=== PATIENT | female | born 1985 | race Two or more races ===

== ENCOUNTER 2017-01-30 14:30 | Inpatient (IN) | payer SELFPAY ==
[~2017-01-30] VITALS: Ht 162.6 cm; Wt 89.4 kg
[2017-01-30] MEDS ORDERED: LIDOCAINE 1% PF 30 ML VIAL. INJ PRN (14:45)
[2017-01-30] MEDS ORDERED: BUTORPHANOL 2 MG/ML VIAL. IV PRN (14:45)
[2017-01-30] MEDS ORDERED: IBUPROFEN 600 MG TABLET. PO PRN (14:45)
[2017-01-30] MEDS ORDERED: 0.9 % SODIUM CHLORIDE 10 ML DISP.SYRIN. IV PRN (14:45)
[2017-01-30] MEDS ORDERED: TERBUTALINE 1 MG/ML VIAL. SQ PRN (14:45)
[2017-01-30] MEDS ORDERED: fentaNYL PF VIAL 100 MCG/2 ML VIAL IV PRN (14:45)
[2017-01-30] MEDS ORDERED: OXYTOCIN 30 UNIT/500 ML PREMIX 500 ML IV PRN ×2 (14:45)
[2017-01-30] MEDS ORDERED: AMPICILLIN SODIUM 2 GM in IV NORMAL SALINE 100ML 100 ML IV ONE (15:00)
[2017-01-30] MEDS ORDERED: DINOPROSTONE 10 MG SUPP.VAG VG ONE (16:00)
[2017-01-30] MEDS: IV RINGERS,LACTATED 1000ML 1,000 ML IV SCH (16:32)
[2017-01-30 16:45] LABS: HEMATOCRIT 34.7 % (36.0-47.0); HEMOGLOBIN 11.1 g/dL (12.0-15.5); RED BLOOD COUNT 4.88 x10^6/uL (3.50-5.40); RED CELL DISTRIBUTION WIDTH 16.2 % (11.5-14.5); WHITE BLOOD COUNT 8.5 x10^3/uL (4.0-11.0)
[2017-01-30 17:17] VITALS: BP 127/71
[2017-01-30] MEDS ORDERED: AMPICILLIN SODIUM 1 GM in IV NORMAL SALINE 50ML 50 ML IV SCH (19:00)
[2017-01-30] MEDS ORDERED: ACETAMINOPHEN 325 MG TABLET. PO PRN (20:30)
[2017-01-31] MEDS ORDERED: OXYTOCIN 30 UNIT/500 ML PREMIX 500 ML IV PRN ×2 (06:00→16:15)
[2017-01-31] MEDS ORDERED: OXYTOCIN in NORMAL SALINE PREMIX 30 UNIT/500 ML BAG. IV ONE (06:00)
[2017-01-31 06:18] LABS: RPR REFLEX Non Reactive (Non Reactive)
[2017-01-31] MEDS: IV RINGERS,LACTATED 1000ML 1,000 ML IV SCH ×2 (09:14→09:34)
[2017-01-31] MEDS ORDERED: IV RINGERS,LACTATED 1000ML 1,000 ML IV SCH (09:18)
[2017-01-31] MEDS ORDERED: fentaNYL PF VIAL 100 MCG/2 ML VIAL EPI PRN (09:30)
[2017-01-31] MEDS ORDERED: ROPIVacaine 0.2% IN 0.9%NACL PF 40 MG/20 ML DISP.SYRIN. EPI PRN (09:30)
[2017-01-31] MEDS ORDERED: NALOXONE 0.4 MG/ML VIAL. IV PRN (09:30)
[2017-01-31] MEDS ORDERED: BUPIVACAINE MPF 0.25% 10 ML VIAL. EPI PRN (09:30)
[2017-01-31] MEDS: L&D EPIDURAL CASSETTE 100 ML EP PRN ×2 (09:35→15:21)
--- NOTE | 2017-01-31 16:13 | PDOC ---
VAGINAL DELIVERY DATE DATE: 01/31/17 TIME: 16:11 : 5 Para: 4 EDC: Feb 04, 2017 VAGINAL DELIVERY: VTX VACCUM ASSISTED: No PLACENTA: Spontaneous SEX: Male WEIGHT Weight [ ] Nuchal Cord: Yes, Times 1, Loose Amniotic Fluid: Clear PAIN: Epidural EPISIOTOMY: No EXTENSION: No EBL 300cc COMPLICATIONS None CONDITION Stable Signs of Intrauterine Infectio: None Shoulder Dystocia: No DIAGNOSIS TIUP del Problems: MIKE LANDAVERDE MD Jan 31, 2017 16:13
[2017-01-31] MEDS ORDERED: MAGNESIUM HYDROXIDE 2,400 MG/30 ML ORAL.SUSP. PO PRN (16:15)
[2017-01-31] MEDS ORDERED: ZOLPIDEM 5 MG TABLET. PO PRN (16:15)
[2017-01-31] MEDS ORDERED: PHENYLEPH/MINERAL OIL/PETROLAT RECTAL OINTMENT 28GM TUBE. RC PRN (16:15)
[2017-01-31] MEDS ORDERED: HYDROCORTISONE 1% TOPICAL OINTMENT 30GM TUBE. TP PRN (16:15)
[2017-01-31] MEDS ORDERED: diphenhydrAMINE HCL 25 MG CAPSULE PO PRN (16:15)
[2017-01-31] MEDS ORDERED: MAG HYDROX/ALUMINUM HYD/SIMETH 30 ML ORAL.SUSP PO PRN (16:15)
[2017-01-31] MEDS ORDERED: ACETAMINOPHEN 325 MG TABLET. PO PRN (16:15)
[2017-01-31] MEDS ORDERED: BENZOCAINE 20% TOPICAL AEROSOL SPRAY 57GM CAN. TP PRN (16:15)
[2017-01-31] MEDS ORDERED: SIMETHICONE 80 MG TAB.CHEW PO PRN (16:15)
[2017-01-31] MEDS ORDERED: 0.9 % SODIUM CHLORIDE 10 ML DISP.SYRIN. IV PRN (16:15)
--- NOTE | 2017-01-31 16:16 | PDOC1 ---
OB - History Hx of Present Ultrasounds: Normal mid trimester US Obstetrical Complications: None Medical Complications: None Past Family/Social History * Past Medical, Surgical, Family and Obstetric Histories reviewed from chart. Blood Type: A+ Rubella: Immune RPR/VDRL: Negative GBS Status: Negative HBsAG: Negative OB - Chief Complaint & HPI Date of Admission: Date of Admission: Jan 30, 2017 at 14:30 Chief Complaint/History : 5 Para: 4 EDC: Feb 04, 2017 Reason for admission: induction of labor Indication for induction: other Admission Nurse Assessment Rev: Yes Problems: OB - Admission Exam Physical Exam Vitals: VS - Last 72 Hours, by Label Date Time Temp Pulse Resp B/P (MAP) Pulse Ox O2 Delivery O2 Flow Rate FiO2 01/31/17 15:21 17 01/31/17 09:35 18 01/30/17 17:17 98.3 93 20 127/71 (89) 98.3 HEENT: Normal, Nasal Mucosa Normal, Oropharynx Normal, Moist Membranes, Fontanelles Normal Heart: Regular Rate Lungs: Clear, Equal Abdomen: Gravid Extremities: Normal Pulses, No tenderness or swelling Reflexes: Normal Cervical Dilatation: 2cm Effacement: 50% Station: Ballotable Amniotic Fluid: Clear Heart Rate: Normal Accelerations: Accelerations Present Decelerations: No decelerations Short Term Variability: Present Contractions on Admission: >10 Minutes Apart Intensity: Moderate Assessment/Plan Assessment/Plan TIUP Induction ACSVD Problems: MIKE LANDAVERDE MD Jan 31, 2017 16:16
[2017-01-31] MEDS ORDERED: FERROUS SULFATE 325 MG TABLET. PO SCH (17:00)
[2017-01-31 21:03] VITALS: BP 109/69
[2017-01-31] MEDS: IBUPROFEN 800 MG TABLET. PO SCH (22:00)
[2017-01-31 23:05] VITALS: BP 106/62
[2017-02-01] MEDS: IBUPROFEN 800 MG TABLET. PO SCH ×2 (04:12→17:08)
[2017-02-01 06:06] VITALS: BP 98/64
[2017-02-01] MEDS: HYDROcodone/APAP 5/325MG 1 TAB TABLET PO PRN ×2 (08:59→22:31)
[2017-02-01 11:20] VITALS: BP 105/64
--- NOTE | 2017-02-01 17:23 | PDOC ---
OB Progress Note Date of Service 02/01/17 Time of Evaluation 1720 Notes Pt. feeling well. No complaints. Lab Laboratory Tests Test 02/01/17 04:48 Hematocrit 30.7 % (36.0-47.0) Laboratory Tests Test 02/01/17 04:48 Hematocrit 30.7 % (36.0-47.0) Medications Current Medications Sodium Chloride (Normal Saline Flush) 3 ml QSHIFT PRN IV AFTER MEDS AND BLOOD DRAWS; Start 01/30/17 at 14:45 Ringer's Solution 1,000 ml @ 125 mls/hr Q8H IV Last administered on 09:34; Start 01/30/17 at 14:33 Butorphanol Tartrate (Stadol) 2 mg PRN Q1HR PRN IV Severe labor pain; Start at 14:45 Fentanyl Citrate (Fentanyl 2ml Vial) 100 mcg PRN Q30MIN PRN IV Severe pain; Start 01/30/17 at 14:45 Terbutaline Sulfate (Brethine) 0.25 mg 1X PRN PRN SQ SEE COMMENTS; Start 01/30 at 14:45; Stop 01/31/17 at 14:44; Status DC Lidocaine HCl 30 ml 1X PRN PRN INJ SEE COMMENTS; Start 01/30/17 at 14:45; Stop 02/01/17 at 14:44; Status DC Ampicillin Sodium 2 gm/Sodium Chloride 100 ml @ 200 mls/hr 1X ONCE IV ; Start 01/30/17 at 15:00; Stop 01/30/17 at 16:52; Status DC Ampicillin Sodium 1 gm/Sodium Chloride 50 ml @ 100 mls/hr Q4H IV ; Start 01/30 at 19:00; Stop 01/30/17 at 19:00; Status DC Oxytocin/Sodium Chloride 500 ml @ 0 mls/hr CONT PRN IV SEE I/O RECORD; Start 01/30/17 at 14:45; Stop 01/30/17 at 16:52; Status DC Oxytocin/Sodium Chloride 500 ml @ 0 mls/hr CONT PRN PRN IV Post delivery bleeding; Start 01/30/17 at 14:45 Ibuprofen (Motrin) 600 mg PRN Q6HRS PRN PO PAIN Last administered on 19:34; Start 01/30/17 at 14:45 Dinoprostone (Cervidil) 10 mg 1X ONCE VG Last administered on 01/30/17 16:32 ; Start 01/30/17 at 16:00; Stop 01/30/17 at 16:01; Status DC Oxytocin/Sodium Chloride 500 ml @ 0 mls/hr CONT PRN IV SEE I/O RECORD; Start 01/31/17 at 06:00 Acetaminophen (Tylenol) 650 mg PRN Q6HRS PRN PO HEADACHE; Start 01/30/17 at 20 :30 Ringer's Solution 1,000 ml @ 1,000 mls/hr Q1H IV Last administered on 12:40; Start 01/31/17 at 09:18; Stop 01/31/17 at 10:17; Status DC Naloxone HCl (Narcan) 0.04 mg PRN Q1MIN PRN IV SEE COMMENTS; Start 01/31/17 at 09:30 Fentanyl Citrate (Fentanyl 2ml Vial) 100 mcg PRN 1X PRN EPI FOR ANESTHESIA; Start 01/31/17 at 09:30; Stop 02/01/17 at 09:29; Status DC Bupivacaine HCl (Sensorcaine-Mpf 0.25%) 10 ml PRN 1X PRN EPI FOR ANESTHESIA; Start 01/31/17 at 09:30; Stop 02/01/17 at 09:29; Status DC Ropivacaine/ Fentanyl/NS 100 ml @ 0 mls/hr CONT PRN EP PAIN Last administered on 01/31/17 15:21; Start 01/31/17 at 09:30 Ropivacaine/ Sodium Chloride 40 mg PRN 1X PRN EPI SEE COMMENTS Last administered on 01/31/17 09:33; Start 01/31/17 at 09:30; Stop 01/31/17 at 09 :35; Status DC Sodium Chloride (Normal Saline Flush) 10 ml QSHIFT PRN IV AFTER MEDS AND BLOOD DRAWS; Start 01/31/17 at 16:15 Oxytocin/Sodium Chloride 500 ml @ 62.5 mls/hr CONT PRN IV SEE I/O RECORD; Start 01/31/17 at 16:15; Stop 02/01/17 at 00:14; Status DC Acetaminophen (Tylenol) 650 mg PRN Q6HRS PRN PO MILD PAIN / TEMP; Start at 16:15 Ibuprofen (Motrin) 800 mg Q8HRS PO Last administered on 02/01/17 17:08; Start 01/31/17 at 22:00 Magnesium Hydroxide (Milk Of Magnesia) 2,400 mg PRN DAILY PRN PO CONSTIPATION Last administered on 02/01/17 17:08; Start 01/31/17 at 16:15 Al Hydroxide/Mg Hydroxide (Mylanta Plus Xs) 30 ml PRN Q4HRS PRN PO HEARTBURN / GAS; Start 01/31/17 at 16:15 Simethicone (Gas-X) 80 mg PRN AFTMEALHC PRN PO GAS / BLOATING; Start 01/31/17 at 16:15 Diphenhydramine HCl (Benadryl) 25 mg PRN Q6HRS PRN PO ITCHING; Start 01/31/17 at 16:15 Benzocaine (Americaine) 1 spray PRN QID PRN TP TOPICAL PAIN Last administered on 01/31/17 20:39; Start 01/31/17 at 16:15 Phenyleph/Shark Oil/Min Oil/Petrol (Preparation H) 1 lucretia PRN QID PRN RC RECTAL PAIN; Start 01/31/17 at 16:15 Hydrocortisone (Cortaid) 1 lucretia PRN QID PRN TP RECTAL PAIN; Start 01/31/17 at 16:15 Ferrous Sulfate (Feosol) 325 mg BIDWMEALS PO ; Start 01/31/17 at 17:00 Zolpidem Tartrate (Ambien) 5 mg PRN QHS PRN PO INSOMNIA, MAY REPEAT X1; Start 01/31/17 at 16:15 Info (Do NOT chart on this placeholder) 1 ea 1X PRN PRN MC SEE COMMENTS; Start 01/31/17 at 16:15 Acetaminophen/ Hydrocodone Bitart (Lortab 5/325) 1 tab PRN Q4HRS PRN PO PAIN Last administered on 02/01/17 08:59; Start 01/31/17 at 16:15 Oxytocin/Sodium Chloride (Oxytocin Premix Infusion) 30 unit STK-MED ONCE IV ; Start 01/31/17 at 06:00; Stop 02/01/17 at 12:59; Status DC Assessment A: PPD#1 s/p Plan of Care: Continue current Tx, Mgmt [place] MIRANDA Jr, MD Feb 01, 2017 17:23
[2017-02-01 23:01] VITALS: BP 112/68
[2017-02-02 06:03] VITALS: BP 119/78
[2017-02-02] MEDS: IBUPROFEN 800 MG TABLET. PO SCH (08:25)
[2017-02-02 09:30] VITALS: BP 105/61
--- NOTE | 2017-02-02 15:15 | PDOC ---
OB Progress Note Date of Service 02/02/17 Time of Evaluation 1515 Notes Pt. feeling well. No complaints. Lab Laboratory Tests Test 02/01/17 04:48 Hematocrit 30.7 % (36.0-47.0) Medications Current Medications Sodium Chloride (Normal Saline Flush) 3 ml QSHIFT PRN IV AFTER MEDS AND BLOOD DRAWS; Start 01/30/17 at 14:45 Ringer's Solution 1,000 ml @ 125 mls/hr Q8H IV Last administered on t 09:34; Start 01/30/17 at 14:33; Stop 02/02/17 at 07:41; Status DC Butorphanol Tartrate (Stadol) 2 mg PRN Q1HR PRN IV Severe labor pain; Start at 14:45; Stop 02/02/17 at 07:41; Status DC Fentanyl Citrate (Fentanyl 2ml Vial) 100 mcg PRN Q30MIN PRN IV Severe pain; Start 01/30/17 at 14:45; Stop 02/02/17 at 07:41; Status DC Terbutaline Sulfate (Brethine) 0.25 mg 1X PRN PRN SQ SEE COMMENTS; Start 01/30 at 14:45; Stop 01/31/17 at 14:44; Status DC Lidocaine HCl 30 ml 1X PRN PRN INJ SEE COMMENTS; Start 01/30/17 at 14:45; Stop 02/01/17 at 14:44; Status DC Ampicillin Sodium 2 gm/Sodium Chloride 100 ml @ 200 mls/hr 1X ONCE IV ; Start 01/30/17 at 15:00; Stop 01/30/17 at 16:52; Status DC Ampicillin Sodium 1 gm/Sodium Chloride 50 ml @ 100 mls/hr Q4H IV ; Start 01/30 at 19:00; Stop 01/30/17 at 19:00; Status DC Oxytocin/Sodium Chloride 500 ml @ 0 mls/hr CONT PRN IV SEE I/O RECORD; Start 01/30/17 at 14:45; Stop 01/30/17 at 16:52; Status DC Oxytocin/Sodium Chloride 500 ml @ 0 mls/hr CONT PRN PRN IV Post delivery bleeding; Start 01/30/17 at 14:45; Stop 02/02/17 at 07:41; Status DC Ibuprofen (Motrin) 600 mg PRN Q6HRS PRN PO PAIN Last administered on 19:34; Start 01/30/17 at 14:45 Dinoprostone (Cervidil) 10 mg 1X ONCE VG Last administered on 01/30/17 16:32 ; Start 01/30/17 at 16:00; Stop 01/30/17 at 16:01; Status DC Oxytocin/Sodium Chloride 500 ml @ 0 mls/hr CONT PRN IV SEE I/O RECORD; Start 01/31/17 at 06:00; Stop 02/02/17 at 07:41; Status DC Acetaminophen (Tylenol) 650 mg PRN Q6HRS PRN PO HEADACHE; Start 01/30/17 at 20 :30 Ringer's Solution 1,000 ml @ 1,000 mls/hr Q1H IV Last administered on 12:40; Start 01/31/17 at 09:18; Stop 01/31/17 at 10:17; Status DC Naloxone HCl (Narcan) 0.04 mg PRN Q1MIN PRN IV SEE COMMENTS; Start 01/31/17 at 09:30 Fentanyl Citrate (Fentanyl 2ml Vial) 100 mcg PRN 1X PRN EPI FOR ANESTHESIA; Start 01/31/17 at 09:30; Stop 02/01/17 at 09:29; Status DC Bupivacaine HCl (Sensorcaine-Mpf 0.25%) 10 ml PRN 1X PRN EPI FOR ANESTHESIA; Start 01/31/17 at 09:30; Stop 02/01/17 at 09:29; Status DC Ropivacaine/ Fentanyl/NS 100 ml @ 0 mls/hr CONT PRN EP PAIN Last administered on 01/31/17 15:21; Start 01/31/17 at 09:30; Stop 02/02/17 at 07:41; Status DC Ropivacaine/ Sodium Chloride 40 mg PRN 1X PRN EPI SEE COMMENTS Last administered on 01/31/17 09:33; Start 01/31/17 at 09:30; Stop 01/31/17 at 09 :35; Status DC Sodium Chloride (Normal Saline Flush) 10 ml QSHIFT PRN IV AFTER MEDS AND BLOOD DRAWS; Start 01/31/17 at 16:15 Oxytocin/Sodium Chloride 500 ml @ 62.5 mls/hr CONT PRN IV SEE I/O RECORD; Start 01/31/17 at 16:15; Stop 02/01/17 at 00:14; Status DC Acetaminophen (Tylenol) 650 mg PRN Q6HRS PRN PO MILD PAIN / TEMP; Start at 16:15 Ibuprofen (Motrin) 800 mg Q8HRS PO Last administered on 02/02/17 08:25; Start 01/31/17 at 22:00 Magnesium Hydroxide (Milk Of Magnesia) 2,400 mg PRN DAILY PRN PO CONSTIPATION Last administered on 02/01/17 17:08; Start 01/31/17 at 16:15 Al Hydroxide/Mg Hydroxide (Mylanta Plus Xs) 30 ml PRN Q4HRS PRN PO HEARTBURN / GAS; Start 01/31/17 at 16:15 Simethicone (Gas-X) 80 mg PRN AFTMEALHC PRN PO GAS / BLOATING; Start 01/31/17 at 16:15 Diphenhydramine HCl (Benadryl) 25 mg PRN Q6HRS PRN PO ITCHING; Start 01/31/17 at 16:15 Benzocaine (Americaine) 1 spray PRN QID PRN TP TOPICAL PAIN Last administered on 01/31/17 20:39; Start 01/31/17 at 16:15 Phenyleph/Shark Oil/Min Oil/Petrol (Preparation H) 1 lucretia PRN QID PRN RC RECTAL PAIN; Start 01/31/17 at 16:15 Hydrocortisone (Cortaid) 1 lucretia PRN QID PRN TP RECTAL PAIN; Start 01/31/17 at 16:15 Ferrous Sulfate (Feosol) 325 mg BIDWMEALS PO ; Start 01/31/17 at 17:00; Stop 02/02/17 at 06:59; Status DC Zolpidem Tartrate (Ambien) 5 mg PRN QHS PRN PO INSOMNIA, MAY REPEAT X1; Start 01/31/17 at 16:15 Info (Do NOT chart on this placeholder) 1 ea 1X PRN PRN MC SEE COMMENTS; Start 01/31/17 at 16:15 Acetaminophen/ Hydrocodone Bitart (Lortab 5/325) 1 tab PRN Q4HRS PRN PO PAIN Last administered on 02/01/17 22:31; Start 01/31/17 at 16:15 Oxytocin/Sodium Chloride (Oxytocin Premix Infusion) 30 unit STK-MED ONCE IV ; Start 01/31/17 at 06:00; Stop 02/01/17 at 12:59; Status DC Assessment PPD#2 s/p Plan of Care: See new orders (D/c home.) [place] MIRANDA Jr, MD Feb 02, 2017 15:15
--- NOTE | 2017-02-02 15:16 | DISCH ---
DISCHARGE INSTRUCTIONS Condition on Discharge Condition on Discharge: Stable Activity After Discharge Activity Instructions for Disc: Activity as tolerated Lifting Instructions after Dis: No heavy lifting Driving Instructions after Dis: Do not drive today Diet after Discharge Diet Texture: Regular Contacting the [facility] after DC Call your doctor for: Concerns you may have Follow-Up Follow up with: [facility]a in 6 weeks. CH[place] MIRANDA Jr, MD Feb 02, 2017 15:16
[2017-02-02] MEDS ORDERED: NAPR500T PO (15:17)
== END 2017-02-02 16:42 | disposition home or self-care (01) | DRG 775 ==
LOC: 3 SO LND 14:30 → 3 NORTH 01-31 19:37
PROVIDERS: ADMIT Specialist; ATTEND Specialist
PROC: 10E0XZZ Delivery of Products of Conception, External Approach (ICD-10-PCS; principal; 2017-01-31)
PROC: 3E0S3BZ Introduction of Anesthetic Agent into Epidural Space, Percutaneous Approach (ICD-10-PCS; 2017-01-31)
PROC: 00HU33Z Insertion of Infusion Device into Spinal Canal, Percutaneous Approach (ICD-10-PCS; 2017-01-31)
DX: O69.1XX0 Labor and delivery complicated by cord around neck, with compression, not applicable or unspecified (principal); Z37.0 Single live birth; Z3A.00 Weeks of gestation of pregnancy not specified
CPT/HCPCS: 36415; 85014; 85027; 86593; 86850; 86900; 86901; J2590; J2795; J7120